=== PATIENT | female | born 1975 | race Caucasian/White ===

== ENCOUNTER 2019-06-13 20:22 | Emergency (ER) | payer MEDICAID ==
[~2019-06-13] VITALS: Ht 162.6 cm; Wt 52.3 kg
[2019-06-13 20:24] VITALS: BP 122/79
[2019-06-13] MEDS ORDERED: HYDROcodone/acetaminophen 5mg/325mg tablet PO ONE (21:00)
[2019-06-13] MEDS ORDERED: rabies vaccine (PCEC)/PF 2.5 unit kit IMVAC ONE (21:00)
[2019-06-13] MEDS ORDERED: rabies immune globulin/PF 150 unit/ml inj IMVAC STA (21:00)
[2019-06-13] MEDS ORDERED: AMOX-422 PO ×2 (21:05→22:50)
[2019-06-13] MEDS ORDERED: HYDR-3965 PO ×2 (21:05→22:50)
--- NOTE | 2019-06-13 21:49 | NUR ---
pt has been given pain medication. currently awaiting MD to numb the area so we can clean the wounds and inject them immune globulin into the sites. pt updated on plan of care
[2019-06-13] MEDS ORDERED: LIDOcaine 1% W/epiNEPHrine 1:200,000 10ml vial IJ ONE (22:05)
--- NOTE | 2019-06-13 22:06 | NUR ---
PA AT BEDSIDE TO NUMB WOUNDS
--- NOTE | 2019-06-13 22:40 | NUR ---
PER PHARMACY THERE ARE NO ADDITIONAL IMMUNE GLOBULIN EXCEPT 3 VIALS WHICH TOTAL 900IU. PT WAS GIVEN THESE LAST [address] SAUCEDA HE WAS OK WITH PT GETTING WHAT WE HAVE IN STOCK. PHARMACY STATES THIS MEDICATION IS ON BACK ORDER AND THERE ARE NO ADDITIONAL DOSES AT THIS TIME IN THIS HOSPITAL.
== END 2019-06-13 23:03 | disposition home or self-care (01) ==
LOC: ER 20:23
DX: S41.131A Puncture wound without foreign body of right upper arm, initial encounter (principal); S40.211A Abrasion of right shoulder, initial encounter; F15.90 Other stimulant use, unspecified, uncomplicated; Z90.710 Acquired absence of both cervix and uterus; Z88.8 Allergy status to other drugs, medicaments and biological substances; Z79.899 Other long term (current) drug therapy; W54.0XXA Bitten by dog, initial encounter; Y93.89 Activity, other specified; Y92.89 Other specified places as the place of occurrence of the external cause; Y99.8 Other external cause status
CPT/HCPCS: 90375; 90471; 90675; 96372; 96374; 99283

== ENCOUNTER 2021-11-23 03:17 | Emergency (ER) | payer MEDICAID ==
[~2021-11-23] VITALS: Ht 162.6 cm; Wt 54.0 kg
[2021-11-23] MEDS ORDERED: metoclopramide 5 mg/ml inj IV ONE (03:35)
[2021-11-23] MEDS ORDERED: fentaNYL/PF 50MCG/1 ML 2ML syringe IV ONE (03:35)
[2021-11-23 03:53] LABS: BASOPHILS % (AUTO) 0.3 % (0-1); EOSINOPHILS # (AUTO) 0.1 X10'3 (0-0.9); EOSINOPHILS % (AUTO) 1.1 % (0-6); HEMATOCRIT 44.8 % (35.0-45.0); HEMOGLOBIN 14.7 g/dl (12.0-16.0); LYMPHOCYTES # (AUTO) 1.5 X10'3 (1.1-4.8); MEAN CORPUSCULAR HEMOGLOBIN 28.1 PG (27.0-31.0); MEAN CORPUSCULAR HGB CONC 32.8 g/dL (33.0-36.5); MEAN CORPUSCULAR VOLUME 85.7 FL (78-98); MEAN PLATELET VOLUME 8.5 FL (7.4-10.4); MONOCYTES # (AUTO) 0.5 X10'3 (0-0.9); MONOCYTES % (AUTO) 5.1 % (2-12); NEUTROPHILS # (AUTO) 7.2 X10'3 (1.8-7.7); NEUTROPHILS % (AUTO) 77.5 % (42-75); PLATELET COUNT 249 X10'3 (140-440); RED BLOOD COUNT 5.23 X10'6 (4.20-5.60); RED CELL DISTRIBUTION WIDTH 12.9 % (11.5-14.5); WHITE BLOOD COUNT 9.3 X10'3 (4.5-11.0)
[2021-11-23 04:12] LABS: ALANINE AMINOTRANSFERASE 26 U/L (12-78); ALBUMIN 4.2 G/DL (3.4-5.0); ALBUMIN/GLOBULIN RATIO 1.1 (1.1-1.5); ALKALINE PHOSPHATASE 71 IU/L (46-116); ANION GAP 11 (8-16); ASPARTATE AMINO TRANSFERASE 24 U/L (10-37); BLOOD UREA NITROGEN 14 MG/DL (7-18); BUN/CREATININE RATIO 14.6 (6.6-38.0); CALCIUM 9.1 MG/DL (8.5-10.1); CHLORIDE 104 MMOL/L (99-107); CREATININE 0.96 MG/DL (0.40-0.90); GLUCOSE 124 MG/DL (70-104); LIPASE 56 U/L (73-393); POTASSIUM 3.3 MMOL/L (3.5-5.1); SODIUM 139 MMOL/L (135-145); TOTAL CARBON DIOXIDE 23.9 MMOL/L (24-32); TOTAL PROTEIN 8.1 G/DL (6.4-8.2); eGFR 62 ML/MIN
--- NOTE | 2021-11-23 04:52 | NUR ---
CALL EBEN LEON,
[2021-11-23 04:59] LABS: URINE HCG NEGATIVE (NEG)
[2021-11-23 05:04] LABS: CLARITY,URINE CLEAR (Clear); COLOR,URINE YELLOW (Yellow); GLUCOSE, URINE NEGATIVE (Neg); KETONES,URINE 40 mg/dl (Neg); LEUKOCYTE ESTERASE ,URINE NEGATIVE (Neg); NITRITES, URINE NEGATIVE (Neg); OCCULT BLOOD,URINE MODERATE (Neg); PH,URINE 5.5 (4.8-8.0); PROTEIN,URINE TRACE mg/dl (Neg); UROBILINOGEN,URINE 0.2 E.U/dL (0.2-1.0)
[2021-11-23 05:08] LABS: UA COLLECTION TYPE CLN CATCH MIDSTREAM
[2021-11-23 05:10] LABS: MUCUS STRANDS MODERATE /LPF (Neg); WBC,URINE 0-4 /HPF (0-4); YEAST FEW /HPF (NEGATIVE)
[2021-11-23 05:11] LABS: RBC,URINE 20-50 /HPF (0-2); SQUAMOUS EPITHELIAL CELL,UR FEW /LPF (FEW)
[2021-11-23 05:12] LABS: BACTERIA,URINE FEW /HPF (Neg); HYALINE CASTS 0-3 /LPF (NEGATIVE)
[2021-11-23 05:15] LABS: URINE AMPHETAMINE SCREEN POSITIVE (Neg); URINE BARBITUATE SCREEN NEGATIVE (Neg); URINE BENZODIAZEPINES SCREEN NEGATIVE (Neg); URINE CANNABINOID SCREEN POSITIVE (Neg); URINE COCAINE SCREEN NEGATIVE (Neg); URINE METHADONE SCREEN NEGATIVE (Neg); URINE OPIATE SCREEN POSITIVE (Neg); URINE PHENCYCLIDINE SCREEN NEGATIVE (Neg)
[2021-11-23 06:04] VITALS: BP 124/89
--- NOTE | 2021-11-23 06:51 | NUR ---
PATIENT PACING IN HALLWAY, INSTRUCTED BY STAFF TO GO BACK TO ROOM, STATES SHE CAN'T STAY IN HER ROOM AND IS ANXIOUS. MD AWARE OF ANXIETY, PATIENT ATTEMPTED TO TAKE IV OUT. IV CATHETER DC'D BY STAFF, PATIENT SAFELY AMBULATED OFF OF UNIT.
== END 2021-11-23 07:22 | disposition left against medical advice (07) ==
LOC: ER 03:17
DX: R10.84 Generalized abdominal pain (principal); R11.2 Nausea with vomiting, unspecified; F15.90 Other stimulant use, unspecified, uncomplicated; Z90.710 Acquired absence of both cervix and uterus; Z88.8 Allergy status to other drugs, medicaments and biological substances; Z88.6 Allergy status to analgesic agent
CPT/HCPCS: 36415; 74176; 80053; 80305; 81001; 81025; 83690; 85025; 96374; 96375; 99284; J2765; J3010